=== PATIENT | male | born 1960 | race Caucasian/White ===

== ENCOUNTER 2018-11-12 01:40 | Observation (INO) | payer MEDICAID ==
[2018-11-12] MEDS ORDERED: NS 1,000 ML IV ONE (01:46)
--- NOTE | 2018-11-12 01:49 | EDPHY ---
H & P Time Seen by Provider: 11/12/18 01:47 HPI/ROS: HPI CHIEF COMPLAINT: Chest pain HISTORY OF PRESENT ILLNESS: 58-year-old male, somewhat of a poor historian, presents to the emergency room with chest pain. The patient presents emergency room stating that approximately an hour ago developed chest pain. Describes a dull and sharp stabbing pain center of his chest that radiates to his right arm. 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 He denies any coronary artery disease, or NV or CVA. Patient was given full-dose aspirin in route. He arrives emergency room complaining of 5/10 chest pain. He does report he has a history of CHF. Hypertension. Past Medical History: Significant past medical for CHF, hypertension Past Surgical History: Denies recent surgery Social History: Denies drugs alcohol tobacco. Family History: Noncontributory ROS REVIEW OF SYSTEMS: 10 Systems were reviewed and negative with the exception of the elements mentioned in the history of present illness. Exam Constitutional triage nursing summary reviewed, vital signs reviewed, awake/ alert. Eyes normal conjunctivae and sclera, right eye normal, left eye not formed. HENT normal inspection, atraumatic, moist mucus membranes, no epistaxis, neck supple/ no meningismus, no raccoon eyes. Respiratory clear to auscultation bilaterally, normal breath sounds, no respiratory distress, no wheezing. Cardiovascular rate normal, regular rhythm, no murmur, no edema, distal pulses normal. Gastrointestinal soft, non-tender, no rebound, no guarding, normal bowel sounds, no distension, no pulsatile mass. Genitourinary no CVA tenderness. Musculoskeletal no midline vertebral tenderness, full range of motion, no calf swelling, no tenderness of extremities, no meningismus, good pulses, neurovascularly intact. Skin pink, warm, & dry, no rash, skin atraumatic. Neurologic awake, alert and oriented x 3, AAOx3, moves all 4 extremities equally, motor intact, sensory intact, CN II-XII intact, normal cerebellar, normal vision, normal speech. Psychiatric normal mood/affect. Heme/Lymph/Immune no lymphadenopathy. Differential Diagnosis: Differential diagnosis includes but is not limited to: ACS, atypical chest pain, pneumothorax, pneumonia, pulmonary embolism, aortic dissection, congestive heart failure, tumor, musculoskeletal pain, esophageal pain, GERD, peptic ulcer disease, pancreatitis Medical Decision Making: Plan for this patient IV establishment with EKG, monitor worker, troponin, chest x-ray, troponin. Re-evaluation: EKG interpretation by me on record in [facility] system. Impression time of EKG 1:42 a.m. Sinus rhythm rate of 79, right bundle-branch block, left anterior fascicular block, abnormal T-wave inversion in V1 V2 with some subtle ST depression. No ST elevation. 0316AM: CP Free. Patient resting comfortably no acute distress. Denies chest pain at this time. Will admit to the hospital for further cardiac evaluation given chest pain, right arm pain, abnormal EKG. Patient agrees for this plan. Chest x-ray reviewed. Spoke with the hospitalist service Dr. Coughlin Agrees to admit. Source: Patient, EMS Constitutional: Initial Vital Signs O2 Sat (%) 93 11/12/18 01:46 O2 (L/minute) 2 Allergies/Adverse Reactions: No Known Allergies Allergy (Unverified 11/12/18 01:46) Home Medications: Medication Instructions Recorded Acetaminophen [Tylenol ES 500 mg 500 - 1,000 mg PO BID PRN 11/12/18 (*)] Acetaminophen/Diphenhydramine 1 - 2 each PO HS PRN 11/12/18 [Acetaminophen Pm Caplet] Aspirin/Caffeine [Ford Back & 1 - 2 each PO BID PRN 11/12/18 Body Caplet] Carvedilol [Coreg] 12.5 mg PO BID 11/12/18 Cyanocobalamin [Vitamin B12 (*)] 1,000 mcg PO DAILY 11/12/18 Furosemide [Lasix 40 MG (*)] 40 mg PO DAILY 11/12/18 Ibuprofen [Motrin (*)] 200 - 400 mg PO BID PRN 11/12/18 Lisinopril [Zestril 5 mg (*)] 5 mg PO DAILY 11/12/18 Tetrahydrozoline 0.05% [Visine (*)] 1 - 2 drop EACHEYE PRN PRN 11/12/18 Medical Decision Making - Data Points Laboratory Results: Laboratory Results 11/12/18 01:45 11/12/18 01:45 Medications Given: Discontinued Medications Carvedilol (Coreg) 12.5 mg PO BIDMEAL [facility] Stop: 05/11/19 10:14 Last Admin: 11/12/18 10:57 Dose: 12.5 mg Furosemide (Lasix) 40 mg PO DAILY [facility] Stop: 05/11/19 10:14 Last Admin: 11/12/18 10:57 Dose: 40 mg Heparin Sodium (Porcine) (Heparin Sc Injection) 5,000 unit SC Q8 [facility] Stop: 05/11/19 05:59 Last Admin: 11/12/18 10:00 Dose: 5,000 unit Sodium Chloride (Ns) 1,000 mls @ 0 mls/hr IV EDNOW ONE; Wide Open PRN Reason: Protocol Stop: 11/12/18 01:47 Last Admin: 11/12/18 02:03 Dose: 1,000 mls Lisinopril (Zestril) 5 mg PO DAILY [facility] Stop: 05/11/19 10:14 Last Admin: 11/12/18 10:57 Dose: 5 mg Nitroglycerin (Nitrostat) 0.4 mg SL EDNOW ONE Stop: 11/12/18 01:51 Last Admin: 11/12/18 02:04 Dose: 0.4 mg Point of Care Test Results: Chemistry 11/12/18 01:53 POC Troponin I 0.02 ng/mL ng/mL (0.00-0.08) Departure - Departure Disposition: [facility] Inpatient Acute Clinical Impression: Chest pain Qualifiers: Chest pain type: unspecified Qualified Code(s): R07.9 - Chest pain, unspecified Condition: Fair
[2018-11-12] MEDS ORDERED: NITROGLYCERIN 0.4 MG BTL SL ONE (01:50)
[2018-11-12 02:11] LABS: PLATELET COUNT 342 10^3/uL (150-400)
[2018-11-12 02:27] LABS: INR 0.97 (0.83-1.16); PROTIME(PATIENT) 12.5 SEC (12.0-15.0)
[2018-11-12] MEDS ORDERED: ONDANSETRON DISINTEGRATING 4 MG TAB PO PRN (03:22)
[2018-11-12] MEDS ORDERED: ONDANSETRON 4 MG/2 ML VIAL IVP PRN (03:22)
[2018-11-12] MEDS ORDERED: ACETAMINOPHEN 325 MG TAB PO PRN (03:22)
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
[2018-11-12] MEDS ORDERED: NITROGLYCERIN 0.4 MG BTL SL PRN (04:03)
[2018-11-12] MEDS ORDERED: HEPARIN 5,000 UNIT/0.5 ML INJ SC SCH (06:00)
[2018-11-12 08:03] LABS: PLATELET COUNT 277 10^3/uL (150-400)
--- NOTE | 2018-11-12 08:12 | CPEKG ---
Test Reason : OPEN Blood Pressure : / mmHG Vent. Rate : 079 BPM Atrial Rate : 079 BPM P-R Int : 184 ms QRS Dur : 184 ms QT Int : 452 ms P-R-T Axes : 047 -86 057 degrees QTc Int : 519 ms Sinus rhythm RBBB and LAFB Confirmed by Tino Coronel ([id number]) on 11/12/2018 8:11:55 AM Referred By: Tino Coronel Confirmed By:Tino Coronel
[2018-11-12] MEDS ORDERED: REGADENOSON 0.4 MG/5 ML SYR IVP ONE (09:54)
[2018-11-12] MEDS ORDERED: LISINOPRIL 5 MG TAB PO SCH (10:15)
[2018-11-12] MEDS ORDERED: FUROSEMIDE 40 MG TAB PO SCH (10:15)
[2018-11-12] MEDS ORDERED: CARVEDILOL 25 MG TAB PO SCH (10:15)
--- NOTE | 2018-11-12 10:48 | PDCARST ---
CAR Stress Test Results Type of Stress Test: MPI Lexiscan Indication: Chest pain Description of Procedure: Baseline ECG demonstrates NSR with trifascular block at 62bpm. No symptoms at rest. Proceeded with Lexiscan administration at bedside. Normal heart rate and BP response with Lexiscan administration. Patient was monitored for 4 minutes post-administration. Peak HR 81bpm, peak BP 109/79. No symptoms noted during testing and no ECG changes were noted. Post- procedure BP and HR recovery was normal. Impression: Normal Lexiscan stress test with a normal hemodynamic response and without ECG changes or symptoms concerning for ischemia. Conclusion: Normal Lexiscan ETT, proceed with nuclear imaging as planned.
[2018-11-12 12:34] VITALS: BP 117/77
--- NOTE | 2018-11-12 12:42 | HOSPPROG ---
Hospitalist Progress Note Assessment/Plan: 58 yo M w/ hx of NICM presents with chest pain. Nora is abnormal with inferior wall hypokinesis, needs resting images in am. Discussed with Dr. Wise. Plan: Chest pain - trops neg x2. Has abnormal EKG and abnormal lexiscan. -resting images in am -NPO at midnight as may need cath, d/w cards Chronic systolic heart failure - Consideration given to NICM due to methamphetamine use per [facility] records. Last EF 33% per TTE performed in October. He has not had an ischemic evaluation. BNP 1650 today but was 2538 at [facility] on 10/20. Euvolemic today. - Ischemic evaluation as above - Continue BB, HAY, furosemide 40 mg qD pending reconciliation - Daily weights, monitor I/Os ILENE vs. CKD - Serum creatinine 1.4 on admission; this was 1.35 at time of discharge from [facility] on 10/25. - Monitor BMP - Avoid nephrotoxic agents, renally dose medications Hx methamphetamine use - Patient reports sobriety since recent hospitalization. D - check drug screen - Encourage cessation Hep C - Active infection per recent viral load. Diet - cardiac diet, NPO at midnight Code - Full Ppx - [facility] Dispo - change to inpt for ongoing cardiac evaluation Subjective: Pt feels better. No CP or SOB currently. He wants to go home. Objective: Vital Signs Temp Pulse Resp BP Pulse Ox 37.0 C 77 18 117/77 94 11/12/18 12:00 11/12/18 12:00 11/12/18 12:00 11/12/18 12:00 11/12/18 12:00 Laboratory Results 11/12/18 07:45 11/12/18 07:45 PT 12.5 SEC (12.0-15.0) 11/12/18 01:45 INR 0.97 (0.83-1.16) 11/12/18 01:45 - Physical Exam Constitutional: no apparent distress Eyes: PERRL Ears, Nose, Mouth, Throat: moist mucous membranes Cardiovascular: regular rate and rhythym Respiratory: no respiratory distress, clear to auscultation Gastrointestinal: normoactive bowel sounds, soft, non-tender abdomen Skin: warm Musculoskeletal: full muscle strength Neurologic: AAOx3 Psychiatric: interacting appropriately ICD10 Worksheet Patient Problems: Problems Problem Status Onset Chest pain Acute
--- NOTE | 2018-11-12 15:58 | ASDISCHSUM ---
Discharge Information Plan Status:Home with No Needs Medically Cleared to Leave: Discharge Date:11/12/2018 01:30 PM CM D/C Disposition:Against Medical Advice ADT D/C Disposition:Against Medical Advice Projected Discharge Date:11/12/2018 01:30 PM Transportation at D/C:Self Discharge Delay Reason: Follow-Up Date:11/12/2018 01:30 PM Discharge Slot: Final Diagnosis: Placement Information Patient Contact Information Contact Name:MINH Relationship:Mother Address:[address] City:[place] Phone: [facility]/Zip Code:[place] [address] Email: Financial Information Financial Class:Medicaid Primary Plan Desc:MEDICAID HEALTH FIRST COLLABORATIVE PHYSICIAN Primary Plan Number:[id number] Secondary Plan Desc: Secondary Plan Number: Assessment Information LACE LACE Length of stay for Answers: Less than 1 day current admission Acuity / Level of Answers: No Care: Did the patient have an inpatient admission? Comorbidities - select Answers: Congestive heart failure all that apply Other Notes: Fox RIBEIRO # of Emergency department Answers: 1-2 visits in the last 6 months Social determinants Answers: History of substance abuse (ETOH, street drugs, prescription drugs, etc.) Score: 7 Date Signed: 11/12/2018 03:56 PM Electronically Signed By:Domonique Appiah RN [facility] CM Progress Note CM Note CM Note Notes: 11/12/2018 Case Management Note Per RN, pt had warrants out for arrest. Pt left AMA. Date Signed: 11/12/2018 03:57 PM Electronically Signed By:Domonique Appiah RN Intervention Information
--- NOTE | 2018-11-13 16:31 | PDDCSUM ---
Discharge Summary Discharge Summary: DOA 11/12/2018. Pt left AMA 11/12/2018. 58 yo male admitted with chest pain. Troponins were negative x2. He has a h/o presumed non-ischemic cardiomyopathy with an EF of 33% on previous echo. He has a h/o methamphetamine abuse, but denies recent use. A lexiscan revealed inferior wall hypokinesis and it was recommended he remained hospitalized in order to complete resting images the following morning. 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 He wandered out of the hospital without notifying staff. RN took notice that he was missing from his room. Brigido CHAVES requested we contact them at discharge and his RN did notify the PD about his unplanned departure/elopement from the hospital. I was not able to arrange any follow up for him.
== END 2018-11-12 13:30 | disposition left against medical advice (07) ==
LOC: F2W 05:48
PROVIDERS: ADMIT Student in an Organized Health Care Education/Training Program; ATTEND Hospitalist
DX: R07.9 Chest pain, unspecified (principal); I42.0 Dilated cardiomyopathy; I50.22 Chronic systolic (congestive) heart failure; I10 Essential (primary) hypertension; Z87.891 Personal history of nicotine dependence; B18.2 Chronic viral hepatitis C; N18.9 Chronic kidney disease, unspecified
CPT/HCPCS: 71045; 78451; 93005; 93017; A9500; G0378; 80305; 84484-ER; J1644; J2785